=== PATIENT | female | born 1960 | race Caucasian/White ===

== ENCOUNTER 2019-05-07 15:50 | Emergency (ER) | payer OTHER ==
[2014-09-14 09:33] VITALS: Wt 104.3 kg
[~2019-05-07 15:50] MED LIST: ALLERY SC; ASPI-715 PO; CETI-176 PO; CHOL10005 PO; ERG400 PO; ERGO500047 PO; FLUT16SP19 NS; LEVO-85 PO; LEVO112T43 PO; LEVO137T23 PO; LEVO150T72 PO; LISI-355 PO; LISI-362 PO; METR500T15 PO; MULT1CAP59 PO; ONDA4TAB PO; PROM-110 PO; PROM25SU9 RC; SIMV-42 PO; SIMVASTATIN PO
--- NOTE | 2019-05-07 16:05 | ER Report ---
History and Physical Time Seen By MD: 16:05 Hx. of Stated Complaint: reegular heart beat for a few days. starting today she has had nasuea/dizzy/headache.foggy/sweating/heaviness since 023 today HPI/ROS CHIEF COMPLAINT: irregular heart beat, chest heaviness HISTORY OF PRESENT ILLNESS: 58 year old female presents with palpations that she first noticed on Thursday. The palpitations feel like a skipped beat. Since then, the feelings of skipped beat has increased slightly in the amount of times she notices them. She has also developed chest pressure, SOB, nausea, dizziness, diaphoresis, and leg weakness that started this morning. Reports the dizziness occurs upon standing or walking. Patient will also experience dizziness when feeling the heart palpitations. Reports chest pressure is generalized across her chest. Patient states she tried resting to make the symptoms go away, however they have progressed throughout the day. REVIEW OF SYSTEMS: Constitutional: No fevers HENT: Dizziness and mild headache. No blurry vision. Respiratory: Reports dyspnea. No cough. Cardiovascular: Chest pressure that is generalized and heart palpitations. Gastrointestinal: Reports nausea. No vomiting, no abdominal pain. : No burning or increased frequency of urination. Musculoskeletal: No back pain. Allergies: Coded Allergies: cat dander (Verified Allergy, Unknown, 05/07/19) mold (Verified Allergy, Unknown, 05/07/19) tree and shrub pollen (Verified Allergy, Unknown, 05/07/19) Uncoded Allergies: Contrast Dye (Allergy, Intermediate, HIVES, 11/18/16) dye (Allergy, Intermediate, HIVES, 08/18/15) Home Meds Reported Medications Cetirizine Hcl (ZYRTEC) 10 Mg Tablet, 10 MG PO QDAY, TAB 11/18/16 Cholecalciferol (Vitamin D3) (VITAMIN D3) 1,000 Unit Tablet, 2000 UNIT PO QDAY, TAB 11/18/16 Levothyroxine Sodium (SYNTHROID) 150 Mcg Tablet, 137-150 MCG PO QDAY 09/13/14 Lisinopril (LISINOPRIL) 10 Mg Tablet, 10 MG PO QDAY 09/09/14 Simvastatin (Zocor) 20 Mg Tablet, 20 MG PO QHS, 0 Refills 03/26/11 Past Medical/Surgical History Past medical hx of migraiines, mitral valve prolapse with bradycardia, HTN, hypercholesterolemia, GERD, fracture of right foot toe, hypothyroid treated with medication, diverticulitis. Past surgical hx of dental procedures and colonoscopy with non Ca plyp 01/2011 Reviewed Nurses Notes: Yes Hx Smoking: No Smoking Status: Former Smoker Exposure to Second Hand Smoke?: No Hx Substance Use Disorder: No Hx Alcohol Use: Yes Constitutional Vital Sign - Last 24 Hours 05/07/19 05/07/19 05/07/19 05/07/19 15:56 16:00 16:30 16:40 Pulse 61 62 ??? Resp 20 B/P (MAP) 162/88 149/84 (105) Pulse Ox 91 94 O2 Delivery Room Air 05/07/19 05/07/19 05/07/19 05/07/19 16:41 16:43 16:46 17:00 Pulse 59 58 59 58 Resp 17 B/P (MAP) 154/85 (108) 157/89 (111) 149/84 (105) 154/88 (110) 154/85 (108) 157/89 (111) Pulse Ox 90 05/07/19 17:30 Pulse 51 Resp 11 Pulse Ox 95 Physical Exam General Appearance: The patient is alert, has no immediate need for airway protection and no current signs of toxicity. Eyes: Pupils equal and round no injection. Respiratory: Chest is non tender, lungs are clear to auscultation. Cardiac: regular rate with bradycardia Gastrointestinal: Abdomen is soft and non tender, no masses, bowel sounds normal. Musculoskeletal: Neck: Neck is supple and non tender. Extremities have full range of motion and are non tender. Skin: No rashes or lesions. DIFFERENTIAL DIAGNOSIS: After history and physical exam differential diagnosis was considered for RI, infection including UTI and pneumonia, hyperthyroid, anxiety. Medical Decision Making Data Points Result Diagram: 05/07/19 1616 05/07/19 1616 Laboratory Hematology Test 05/07/19 16:16 05/07/19 17:03 Red Blood Count 4.47 M/uL (4.17-5.56) Mean Corpuscular Volume 93.2 fL (80.0-96.0) Mean Corpuscular Hemoglobin 32.1 pg (26.0-33.0) Mean Corpuscular Hemoglobin Concent 34.5 g/dL (32.0-36.0) Red Cell Distribution Width 12.6 % (11.5-14.5) Mean Platelet Volume 7.7 fL (7.2-11.1) Neutrophils (%) (Auto) 52.4 % (39.4-72.5) Lymphocytes (%) (Auto) 36.0 % (17.6-49.6) Monocytes (%) (Auto) 7.6 % (4.1-12.4) Eosinophils (%) (Auto) 3.5 % (0.4-6.7) Basophils (%) (Auto) 0.5 % (0.3-1.4) Nucleated RBC Relative Count (auto) 0.1 /100WBC Neutrophils # (Auto) 3.7 K/uL (2.0-7.4) Lymphocytes # (Auto) 2.6 K/uL (1.3-3.6) Monocytes # (Auto) 0.5 K/uL (0.3-1.0) Eosinophils # (Auto) 0.2 K/uL (0.0-0.5) Basophils # (Auto) 0.0 K/uL (0.0-0.1) Nucleated RBC Absolute Count (auto) 0.00 K/uL Sodium Level 140 mmol/L (137-145) Potassium Level 3.8 mmol/L (3.5-5.0) Chloride Level 107 mmol/L (98-107) Carbon Dioxide Level 24 mmol/L (22-31) Blood Urea Nitrogen 17 mg/dl (7-18) Creatinine 1.00 mg/dl (0.52-1.04) Glomerular Filtration Rate Calc 56.6 Random Glucose 99 mg/dl (75-110) Calcium Level 9.1 mg/dl (8.4-10.2) Total Bilirubin 0.7 mg/dl (0.2-1.3) Aspartate Amino Transf (AST/SGOT) 34 U/L (0-35) Alanine Aminotransferase (ALT/SGPT) 50 U/L (0-56) Alkaline Phosphatase 95 U/L (0-126) Troponin I < 0.012 ng/ml Total Protein 6.8 g/dl (6.3-8.2) Albumin 4.0 g/dl (3.5-5.0) Urine Color Yellow Urine Clarity Clear Urine pH 6.0 pH (4.8-9.5) Urine Specific [place] 1.015 Urine Protein Negative mg/dL (NEGATIVE) Urine Glucose (UA) Negative mg/dL (NEGATIVE) Urine Ketones Negative mg/dL (NEGATIVE) Urine Blood Negative (NEGATIVE) Urine Nitrite Negative (NEGATIVE) Urine Bilirubin Negative (NEGATIVE) Urine Urobilinogen 0.2 mg/dL (0.2-1.9) Urine Leukocyte Esterase Negative (NEGATIVE) Urine RBC 2 /HPF (0-2/HPF) Urine WBC <1 /HPF (0-5/HPF) Urine Squamous Epithelial Cells Many /LPF (</=FEW) Urine Bacteria Few /HPF (NONE-FEW) Urine Mucus None /HPF (NONE-FEW) Chemistry Test 05/07/19 16:16 05/07/19 17:03 White Blood Count 7.2 k/uL (4.5-11.0) Red Blood Count 4.47 M/uL (4.17-5.56) Hemoglobin 14.4 g/dL (12.0-16.0) Hematocrit 41.7 % (34.0-47.0) Mean Corpuscular Volume 93.2 fL (80.0-96.0) Mean Corpuscular Hemoglobin 32.1 pg (26.0-33.0) Mean Corpuscular Hemoglobin Concent 34.5 g/dL (32.0-36.0) Red Cell Distribution Width 12.6 % (11.5-14.5) Platelet Count 176 K/uL (150-450) Mean Platelet Volume 7.7 fL (7.2-11.1) Neutrophils (%) (Auto) 52.4 % (39.4-72.5) Lymphocytes (%) (Auto) 36.0 % (17.6-49.6) Monocytes (%) (Auto) 7.6 % (4.1-12.4) Eosinophils (%) (Auto) 3.5 % (0.4-6.7) Basophils (%) (Auto) 0.5 % (0.3-1.4) Nucleated RBC Relative Count (auto) 0.1 /100WBC Neutrophils # (Auto) 3.7 K/uL (2.0-7.4) Lymphocytes # (Auto) 2.6 K/uL (1.3-3.6) Monocytes # (Auto) 0.5 K/uL (0.3-1.0) Eosinophils # (Auto) 0.2 K/uL (0.0-0.5) Basophils # (Auto) 0.0 K/uL (0.0-0.1) Nucleated RBC Absolute Count (auto) 0.00 K/uL Glomerular Filtration Rate Calc 56.6 Calcium Level 9.1 mg/dl (8.4-10.2) Total Bilirubin 0.7 mg/dl (0.2-1.3) Aspartate Amino Transf (AST/SGOT) 34 U/L (0-35) Alanine Aminotransferase (ALT/SGPT) 50 U/L (0-56) Alkaline Phosphatase 95 U/L (0-126) Troponin I < 0.012 ng/ml Total Protein 6.8 g/dl (6.3-8.2) Albumin 4.0 g/dl (3.5-5.0) Urine Color Yellow Urine Clarity Clear Urine pH 6.0 pH (4.8-9.5) Urine Specific [place] 1.015 Urine Protein Negative mg/dL (NEGATIVE) Urine Glucose (UA) Negative mg/dL (NEGATIVE) Urine Ketones Negative mg/dL (NEGATIVE) Urine Blood Negative (NEGATIVE) Urine Nitrite Negative (NEGATIVE) Urine Bilirubin Negative (NEGATIVE) Urine Urobilinogen 0.2 mg/dL (0.2-1.9) Urine Leukocyte Esterase Negative (NEGATIVE) Urine RBC 2 /HPF (0-2/HPF) Urine WBC <1 /HPF (0-5/HPF) Urine Squamous Epithelial Cells Many /LPF (</=FEW) Urine Bacteria Few /HPF (NONE-FEW) Urine Mucus None /HPF (NONE-FEW) Urinalysis Test 05/07/19 17:03 Urine Color Yellow Urine Clarity Clear Urine pH 6.0 pH (4.8-9.5) Urine Specific [place] 1.015 Urine Protein Negative mg/dL (NEGATIVE) Urine Glucose (UA) Negative mg/dL (NEGATIVE) Urine Ketones Negative mg/dL (NEGATIVE) Urine Blood Negative (NEGATIVE) Urine Nitrite Negative (NEGATIVE) Urine Bilirubin Negative (NEGATIVE) Urine Urobilinogen 0.2 mg/dL (0.2-1.9) Urine Leukocyte Esterase Negative (NEGATIVE) Urine RBC 2 /HPF (0-2/HPF) Urine WBC <1 /HPF (0-5/HPF) Urine Squamous Epithelial Cells Many /LPF (</=FEW) Urine Bacteria Few /HPF (NONE-FEW) Urine Mucus None /HPF (NONE-FEW) EKG/Imaging EKG Interpretation 12 lead EKG: Rhythm: Sinus bradycardia with first degree AV block with ventricular rate at 57 bpm [place]: normal QRS: normal ST segments: normal Monitor Interpretation: Other Imaging PATIENT NAME: Aislinn Lemon : 1960 MR: [id number] V: [id number] EXAM DATE: ORDERING PHYSICIAN: VIC YEE TECHNOLOGIST: Location: [facility] - [place] Patient: Aislinn Lemon : 1960 Visit/Account:[id number] Date of Sevice: 05/07/2019 Exam type: CHEST PA LAT History: chest pain, SOB Comparison: 02/22/2017. Findings: Both lungs are well-expanded with some chronic appearing interstitial changes. No focal infiltrate, pleural effusion or pneumothorax. Heart is enlarged. The osseous structures demonstrate degenerative changes. IMPRESSION: 1. No acute cardiopulmonary disease. ED Course/Re-evaluation ED Course Upon arrival to the ED, patient admitted to an exam room, hx and physical obtained, differentials considered. Patient presents with palpations that she first noticed on Thursday. The palpitations feel like a skipped beat. Since then, the feelings of skipped beat has increased slightly in the amount of times she notices them. She has also developed chest pressure, SOB, nausea, dizziness, diaphoresis, and leg weakness that started this morning. Reports the dizziness occurs upon standing or walking. Patient will also experience dizziness when feeling the heart palpitations. Reports chest pressure is generalized across her chest. Patient states she tried resting to make the symptoms go away, however they have progressed throughout the day. She has a hx of mitral valve prolapse and hypothyroid. On exam, lungs are clear, heart with bradycardia. IV started. CBC, CMP, UA, chest x-ray, EKG, and troponin collected. 1000ml NS infused. Labs unremarkable with WBC 7.2 and negative troponin. UA negative for infection. Chest x-ray with no acute cardiopulmonary process. Discussed with patient her normal labs and the need to place patient on a holter monitor to get a better picture of her heart rhythm. The results of the holter will be sent to her PCP and she is to follow-up with her, however, we will call her next week if there are any abnormal results. Patient agrees with plan of care and has no further questions. Decision to Disposition Date: May 07, 2019 Decision to Disposition Time: 17:40 Depart Departure Latest Vital Signs Vital Signs Date Time Temp Pulse Resp B/P (MAP) Pulse Ox O2 Delivery O2 Flow Rate FiO2 05/07/19 17:30 51 11 95 05/07/19 17:00 154/88 (110) 05/07/19 15:56 Room Air Impression: Primary Impression: Abnormal heart rhythm Condition: Condition Unchanged Disposition: HOME OR SELF-CARE Referrals: SHELLEY GARZA (PCP) Patient Instructions: Holter Monitoring (ED) Additional Instructions: Drink plenty of water and get plenty of rest. Wear your holter monitor for 48 hours, then bring back to the hospital and drop it off in admitting. The results of your holter monitor will be sent to Shelley Garza. Please follow-up with Shelley as soon as she gets back from vacation. Return to the ER with worsening chest pressure, difficulty breathing, increased palpitations, increased dizziness, or any other concerns. Problem Qualifiers Primary Impression: Abnormal heart rhythm Arrhythmia type: other cardiac arrhythmia Qualified Codes: I49.8 - Other specified cardiac arrhythmias VIC YEE May 07, 2019 16:05
[2019-05-07] MEDS ORDERED: NS(*) 0.9% 1000 ML BAG 1,000 ML IV ONE (16:20)
[2019-05-07 16:33] LABS: PLATELET COUNT, AUTOMATED 176 K/uL (150-450)
--- NOTE | 2019-05-07 16:47 | RADIOLOGY IMAGING REPORT ---
FACILITY: [facility] PATIENT NAME: Aislinn Lemon : 1960 MR: [id number] V: [id number] EXAM DATE: ORDERING PHYSICIAN: VIC YEE TECHNOLOGIST: Location: [facility] - [place] Patient: Aislinn Lemon : 1960 Visit/Account:[id number] Date of Sevice: 05/07/2019 Exam type: CHEST PA LAT History: chest pain, SOB Comparison: 02/22/2017. Findings: Both lungs are well-expanded with some chronic appearing interstitial changes. No focal infiltrate, pleural effusion or pneumothorax. Heart is enlarged. The osseous structures demonstrate degenerative changes. IMPRESSION: 1. No acute cardiopulmonary disease. Report Dictated By: Rodolfo Sarkar MD at 05/07/2019 4:41 PM Report E-Signed By: Rodolfo Sarkar MD at 05/07/2019 4:42 PM WSN:[id number]
[2019-05-07 17:00] VITALS: BP 154/88
--- NOTE | 2019-05-07 19:07 | EKG ---
FACILITY: [facility] - [place] PATIENT NAME: EMILY SILVERMAN : [id number] MR: [id number] V: [id number] EXAM DATE: ORDERING PHYSICIAN: VIC YEE TECHNOLOGIST: BHAVIN Test Reason : CP Blood Pressure : / mmHG Vent. Rate : 057 BPM Atrial Rate : 057 BPM P-R Int : 238 ms QRS Dur : 100 ms QT Int : 440 ms P-R-T Axes : 043 -48 027 degrees QTc Int : 428 ms Sinus bradycardia with 1st degree AV block Left anterior fascicular block Abnormal ECG When compared with ECG of 22-FEB-2017 09:48, No significant change was found Confirmed by DUY CARR ([id number]) on 05/08/2019 6:28:19 AM Referred By: Confirmed By:DUY CARR
--- NOTE | 2019-05-11 06:55 | RT HOLTER TEST ---
FACILITY: [facility] - [place] PATIENT NAME: EMILY SILVERMAN : [id number] MR: [id number] V: [id number] EXAM DATE: ORDERING PHYSICIAN: VIC YEE TECHNOLOGIST: Christopher Hook-up date: 2019-05-07 17:53:00 Duration: 47:59:00 Test Indications: Palpitations Medications: Simvastatin Synthroid Lisinopril 320216 QRS complexes 221 Ventricular ectopics which represent <1 % of total QRS comp. 81 Supraventricular ectopics which represent <1 % of total QRS comp. * Paced QRS complexes which represent % of total QRS comp. VENTRICULAR ECTOPY 219 Isolated 0 Bigeminal Cycles 1 Couplets 0 Runs 0 Beats in Runs * Beats LONGEST at * BPM at :: -- * Beats FASTEST at * BPM at :: -- SUPRAVENTRICULAR ECTOPY 73 Isolated 4 Couplets 0 Runs 0 Beats in Runs * Beats LONGEST at * BPM at :: -- * Beats FASTEST at * BPM at :: -- HEART RATES 44 MIN at 05:08:54 2019-05-08 59 AVG 88 MAX at 17:00:25 2019-05-08 LONGEST RR 1.360 secs at 07:21:32 2019-05-09 S-T LEVELS Channel 1 -12.800 mm MIN at 17:53:00 2019-05-07 -12.800 mm MAX at 17:53:00 2019-05-07 Channel 3 -12.800 mm MIN at 17:53:00 2019-05-07 -12.800 mm MAX at 17:53:00 2019-05-07 The patient had 3 patient reported events. She was in a sinus bradycardic rhythm at 50 and 60 beats per minute (bpm) with the first two. The third event, she was having ventricular ectopy (VE) trigeminy. The patient was predominantly in a sinus r hythm, but had occasional VE. There was occasional supraventricular ectopy. Average heart rate was 59 bpm. Confirmed by LIZZETH DURHAM ([id number]) on 05/11/2019 6:55:13 AM Referred By: Overread By: LIZZETH DURHAM
== END 2019-05-07 17:54 | disposition home or self-care (01) ==
LOC: ER 16:25
DX: I49.8 Other specified cardiac arrhythmias (principal)
CPT/HCPCS: 71046; 81001; 84484; 85025; 93005; 93225; 96360; 96361; 99284; J7030; 82040; 82247; 82310; 82374; 82435; 82565; 82947; 84075; 84132; 84155; 84295; 84450; 84460; 84520; 93226